=== PATIENT | female | born 1945 ===

== ENCOUNTER 2021-01-17 17:22 | Inpatient (IN) ==
[2021-01-17 18:21] LABS: Basophils % 0.5 %; Immature Granulocytes % 0.4 % (0-4)
[2021-01-17 18:22] LABS: Basophils # 0.1 K/mcL (0.0-0.2); Eosinophils % 0.2 %; Hematocrit 15.7 % (35.3-44.9); Lymphocytes # 1.3 K/mcL (0.6-4.6); Lymphocytes % 11.2 %; Mean Corpuscular HGB Conc 31.8 g/dL (31.6-35.5); Mean Corpuscular Volume 84.9 fL (83.0-100.0); Mean Platelet Volume 10.3 fL (9.4-12.4); Monocytes # 0.6 K/mcL (0.0-1.3); Neutrophils # 9.4 K/mcL (1.6-8.9); Platelet Count 380 K/mcL (140-400); Red Blood Count 1.85 M/mcL (3.82-4.97); Red Cell Distribution Width 16.1 % (11.5-14.5); Segmented Neutrophils % 82.7 %; White Blood Count 11.4 K/mcL (4.3-11.1)
[2021-01-17 18:42] LABS: Alanine Aminotransferase 7 Units/L (7-52); Albumin 3.4 g/dL (3.5-5.7); Albumin/Globulin Ratio 1.6 (1.1-2.2); Alkaline Phosphatase 57 Units/L (34-104); Aspartate Amino Transferase 11 Units/L (13-39); BUN/Creatinine Ratio 47 (6-26); Bilirubin,Total 0.1 mg/dL (0.3-1.0); Blood Urea Nitrogen 24 mg/dL (8-23); Calcium 8.7 mg/dL (8.6-10.3); Carbon Dioxide 27 mEq/L (23-29); Chloride 98 mEq/L (98-107); Globulin 2.1 g/dL (2.4-3.5); Glucose 126 mg/dL (70-105); Osmolality,Calculated 284 (280-300); Potassium 3.3 mEq/L (3.5-5.1); Sodium 134 mEq/L (136-145); Total Protein 5.5 g/dL (6.4-8.9); Troponin I < 0.03 ng/mL (< 0.04); eGFR For African Americans > 60 (> 60); eGFR For Non-African Americans > 60 (> 60)
[2021-01-17 18:55] LABS: Thyroid Stimulating Hormone 0.918 mcIU/mL (0.340-5.600)
[2021-01-17 19:03] LABS: Platelet Estimate Normal (Normal)
[2021-01-17 21:08] LABS: Bilirubin,Urine Negative (Negative); Blood,Urine Negative (Negative); Clarity,Urine Clear (Clear); Color,Urine Colorless (Yellow); Glucose,Urine (UA) Normal (Normal); Ketones,Urine Negative (Negative); Leukocyte Esterase,Urine Negative (Negative); Nitrite,Urine Negative (Negative); PH,Urine 6.5 pH Units (5.0-8.0); Protein,Urine Negative (Neg-Trace); Specific Gravity,Urine 1.016 (1.010-1.025); Urobilinogen,Urine Normal (Normal)
[2021-01-17] MEDS ORDERED: Pantoprazole 40 MG VIAL IVP ONE ×2 (21:12→22:05)
[2021-01-17] MEDS ORDERED: Naloxone 0.4 MG/ML INJ IVP PRN (23:27)
[2021-01-17] MEDS ORDERED: *HR* OxyCODONE Immed Rel 5 MG TABLET PO PRN (23:27)
[2021-01-17] MEDS ORDERED: Melatonin 3 MG TABLET PO PRN (23:27)
[2021-01-17] MEDS ORDERED: Acetaminophen 325 MG TABLET PO PRN (23:27)
[2021-01-17] MEDS ORDERED: *HR* Promethazine 25 MG/ML VIAL IM PRN (23:27)
[2021-01-17] MEDS ORDERED: *HR* HYDROcodone/Acet 5/325 mg TABLET PO PRN (23:27)
[2021-01-18] MEDS ORDERED: 0.9 % Sodium Chloride 250 ML ONE ×2 (00:03→05:06)
[2021-01-18] MEDS: hydrOXYzine pamoate 25 MG CAPSULE PO PRN ×3 (00:42→21:03)
[2021-01-18] MEDS ORDERED: Saliva Stimulant 44.3ml BOTTLE PO PRN (02:16)
[2021-01-18] MEDS ORDERED: Dextrose Gel 15 GM/37.5 ML TUBE PO PRN ×2 (02:17)
[2021-01-18] MEDS ORDERED: *HR* Dextrose 50 % in Water (Syg) 50 ML SYRINGE IVP PRN (02:17)
[2021-01-18] MEDS ORDERED: D5% in Water 1,000 ML IVC PRN (02:17)
[2021-01-18] MEDS ORDERED: Isovue-370 500 ML BOTTLE IVP ONE (02:19)
[2021-01-18] MEDS: 0.9 % Sodium Chloride 1,000 ML IVC SCH (04:02)
[2021-01-18] MEDS: Pantoprazole 40 MG in 0.9 % Sodium Chloride Mini Bag 100 ML IVC SCH ×4 (04:03→20:14)
[2021-01-18 06:28] LABS: Basophils # 0.1 K/mcL (0.0-0.2); Basophils % 0.9 %; Eosinophils # 0.1 K/mcL (0.0-0.6); Eosinophils % 1.4 %; Immature Granulocytes % 0.3 % (0-4); Lymphocytes # 1.9 K/mcL (0.6-4.6); Lymphocytes % 24.4 %; Mean Corpuscular HGB Conc 31.6 g/dL (31.6-35.5); Mean Corpuscular Hemoglobin 27.5 pg (28.0-33.3); Mean Corpuscular Volume 87.2 fL (83.0-100.0); Mean Platelet Volume 10.9 fL (9.4-12.4); Monocytes # 0.6 K/mcL (0.0-1.3); Monocytes % 7.8 %; Neutrophils # 5.2 K/mcL (1.6-8.9); Platelet Count 332 K/mcL (140-400); Red Blood Count 2.18 M/mcL (3.82-4.97); Red Cell Distribution Width 15.4 % (11.5-14.5); Segmented Neutrophils % 65.2 %; White Blood Count 7.9 K/mcL (4.3-11.1)
[2021-01-18 06:34] LABS: INR 1.2; Prothrombin Time 13.3 Seconds (9.4-12.1)
[2021-01-18 06:53] LABS: Folate 17.7 ng/mL (3.0-16.0)
[2021-01-18 07:00] LABS: % Iron Saturation 6 % (15-50); Alanine Aminotransferase 7 Units/L (7-52); Albumin 3.5 g/dL (3.5-5.7); Albumin/Globulin Ratio 1.8 (1.1-2.2); Alkaline Phosphatase 62 Units/L (34-104); Aspartate Amino Transferase 10 Units/L (13-39); BUN/Creatinine Ratio 31 (6-26); Bilirubin,Total 0.4 mg/dL (0.3-1.0); Blood Urea Nitrogen 16 mg/dL (8-23); Calcium 8.4 mg/dL (8.6-10.3); Carbon Dioxide 24 mEq/L (23-29); Chloride 105 mEq/L (98-107); Glucose 91 mg/dL (70-105); Iron 20 mcg/dL (50-170); Lactate Dehydrogenase 107 Units/L (140-271); Magnesium 1.8 mg/dL (1.6-2.6); Osmolality,Calculated 281 (280-300); Phosphorous 2.9 mg/dL (2.7-4.5); Potassium 3.7 mEq/L (3.5-5.1); Sodium 135 mEq/L (136-145); Total Protein 5.5 g/dL (6.4-8.9); Transferrin 255 mg/dL (203-362); eGFR For African Americans > 60 (> 60); eGFR For Non-African Americans > 60 (> 60)
[2021-01-18 07:16] LABS: Ferritin 10 ng/mL (10-120)
[2021-01-18 10:39] LABS: Hematocrit 23.7 % (35.3-44.9)
[2021-01-18 10:41] LABS: Hemoglobin 7.6 g/dL (11.5-15.4)
[2021-01-18] MEDS ORDERED: *HR* Propofol 200 MG/20 ML VIAL IVP ONE ×2 (14:56)
[2021-01-18] MEDS ORDERED: Lidocaine -MPF 2% 5 ML VIAL ONE (14:57)
[2021-01-19] MEDS: Pantoprazole 40 MG in 0.9 % Sodium Chloride Mini Bag 100 ML IVC SCH ×3 (00:21→12:57)
[2021-01-19] MEDS: hydrOXYzine pamoate 25 MG CAPSULE PO PRN (08:57)
[2021-01-19 10:14] LABS: Basophils # 0.1 K/mcL (0.0-0.2); Basophils % 1.4 %; Eosinophils # 0.4 K/mcL (0.0-0.6); Eosinophils % 5.4 %; Hematocrit 26.1 % (35.3-44.9); Hemoglobin 8.2 g/dL (11.5-15.4); Immature Granulocytes % 0.2 % (0-4); Lymphocytes # 1.4 K/mcL (0.6-4.6); Lymphocytes % 16.9 %; Mean Corpuscular HGB Conc 31.4 g/dL (31.6-35.5); Mean Corpuscular Hemoglobin 28.6 pg (28.0-33.3); Mean Corpuscular Volume 90.9 fL (83.0-100.0); Monocytes # 0.6 K/mcL (0.0-1.3); Monocytes % 7.5 %; Neutrophils # 5.6 K/mcL (1.6-8.9); Platelet Count 330 K/mcL (140-400); Red Blood Count 2.87 M/mcL (3.82-4.97); Red Cell Distribution Width 15.3 % (11.5-14.5); Segmented Neutrophils % 68.6 %; White Blood Count 8.1 K/mcL (4.3-11.1)
[2021-01-19 10:37] LABS: BUN/Creatinine Ratio 20 (6-26); Blood Urea Nitrogen 11 mg/dL (8-23); Calcium 8.1 mg/dL (8.6-10.3); Carbon Dioxide 24 mEq/L (23-29); Chloride 108 mEq/L (98-107); Glucose 105 mg/dL (70-105); Magnesium 1.8 mg/dL (1.6-2.6); Osmolality,Calculated 286 (280-300); Phosphorous 2.6 mg/dL (2.7-4.5); Potassium 3.3 mEq/L (3.5-5.1); Sodium 138 mEq/L (136-145); eGFR For African Americans > 60 (> 60); eGFR For Non-African Americans > 60 (> 60)
[2021-01-19 12:06] VITALS: BP 110/59; PULSE 67; TEMP 98; O2SAT 97
[2021-01-19] MEDS: 0.9 % Sodium Chloride 1,000 ML IVC SCH (12:56)
== END 2021-01-19 15:46 | disposition home or self-care (01) | DRG 378 ==
LOC: EMEROOARM 17:22 → 3NENU 17:22 → SUATTDRO 21:48 → 3NENU 22:35
PROVIDERS: ADMIT Family Medicine; ATTEND Hospitalist
PROC: ENDOEBX (2021-01-18 15:45)